=== PATIENT | male | born 1970 | race African-American/Black ===

== ENCOUNTER 2018-06-29 13:00 | Emergency (ER) | payer SELFPAY ==
[2018-06-29] MEDS ORDERED: Fentanyl 100 MCG/2 ML VIAL ONE (13:17)
[2018-06-29 13:31] LABS: Hemoglobin 14.2 g/dL (14.0-18.0); Mean Corpuscular HGB CONC 33.2 g/dL (32.0-36.0); Mean Corpuscular Hemoglobin 30.3 pg (27.0-31.0); Mean Corpuscular Volume 91.5 fL (78.0-98.0); Mean Platelet Volume 7.4 fL (7.4-10.4); Platelet Count 179 thou/uL (130-400); Red Blood Cell (RBC) Count 4.67 mill/uL (4.70-6.10); White Blood Cell (WBC) Count 15.1 thou/uL (4.8-10.8)
[2018-06-29 13:51] LABS: ALT (SGPT) 33 U/L (8-55); AST (SGOT) 19 U/L (5-34); Albumin 4.3 g/dL (3.5-5.0); Alkaline Phosphatase 66 U/L (40-150); Anion Gap 16 mmol/L (10-20); BUN (Urea Nitrogen) 8 mg/dL (8.9-20.6); Bilirubin, Total 1.4 mg/dL (0.2-1.2); Calc. Creatinine Clearance 0 mL/min (70-130); Calcium 10.3 mg/dL (7.8-10.44); Carbon Dioxide 22 mmol/L (22-29); Chloride 104 mmol/L (98-107); Estimated GFR-MDRD 56; Globulin 3.7 g/dL (2.4-3.5); Glucose 147 mg/dL (70-105); Potassium 3.8 mmol/L (3.5-5.1); Sodium 138 mmol/L (136-145)
[2018-06-29 13:54] LABS: Band 24 % (5-11); Lymphocytes 5 % (21-51); MDiff Complete? YES; Metamyelocyte 1 % (0-0); Monocytes 2 % (0-10); Myelocyte 1 % (0-0); Neutrophil 67 % (42-75); PLT Morphology Comment Appears Adequate
--- NOTE | 2018-06-29 14:01 | ULT ---
ULTRASOUND TESTICULAR WITH DOPPLER: HISTORY: Right testicular pain and swelling. COMPARISON: None. FINDINGS: Real-time, stone scale, color Doppler, and spectral analysis of the testicles was performed. There is marked asymmetric thickening of the right scrotal skin relative to the left. The right test icle measures 4.8 x 3.1 x 3 cm and the left testicle measures 4.4 x 3.5 x 2.4 cm. The right epididym is is larger than the right. There is increased vascular flow to the right epididymis. The right ep ididymis measures 2.5 x 1.2 x 0.9 cm and the left measures 1.5 x 1.1 x 1.1 cm. IMPRESSION: 1. Findings suggestive of a right-sided epididymitis with asymmetrically enlarged hypervascular righ t epididymis with marked asymmetric increased skin thickening of the right scrotum relative to the le ft. 2. Subtle debris within a small right-sided hydrocele could be early infected fluid. POS: [facility]
== END 2018-06-29 14:52 | disposition home or self-care (01) ==
LOC: ERS 13:00
DX: N45.1 Epididymitis (principal)
CPT/HCPCS: 36415; 76870; 80053; 85025; 93976; 96374; J3010